=== PATIENT | female | born 1975 ===

== ENCOUNTER 2016-10-12 21:40 | Observation (INO) | payer BC ==
[2016-10-12 21:55] VITALS: RESP 18; O2SAT 100
[2016-10-12] MEDS ORDERED: Iohexol 240 (50 ml) PO STA (22:52)
[2016-10-12] MEDS ORDERED: Sodium Chloride 0.9% 1,000 ML IV STA (22:52)
[2016-10-12] MEDS ORDERED: Iohexol 240 (50 ml) ONE (23:10)
[2016-10-12 23:16] LABS: BASO # 0.1 K/uL (0.0-0.2); BASO % 0.5 % (0.0-2.0); EOS # 0.3 K/uL (0.0-0.7); EOS % 2.1 % (0.0-4.0); HEMATOCRIT 40.9 % (34.0-47.0); LYMPH # 3.5 K/uL (1.0-4.3); LYMPH % 21.8 % (20.0-40.0); MEAN CELL VOLUME 85.5 fl (81.0-99.0); MEAN CORPUSCULAR HEMOGLOBIN 28.7 pg (27.0-31.0); MEAN CORPUSCULAR HGB CONC 33.6 g/dL (33.0-37.0); MEAN PLATELET VOLUME 8.6 fl (7.2-11.7); MONO # 0.8 K/uL (0.0-0.8); MONO % 5.1 % (0.0-10.0); NEUT # 11.3 K/uL (1.8-7.0); NEUT % 70.5 % (50.0-75.0); RED CELL DISTRIBUTION WIDTH 14.2 % (11.5-14.5)
[2016-10-12 23:25] LABS: ALB/GLOB RATIO 1.2 (1.0-2.1); ALCOHOL SERUM < 10 mg/dl (0-10); ALKALINE PHOSPHATASE 137 U/L (38-126); ALT/SGPT 66 U/L (9-52); AST/SGOT 55 U/L (14-36); BILIRUBIN,TOTAL 0.5 mg/dl (0.2-1.3); BLOOD UREA NITROGEN 10 mg/dl (7-17); CALCIUM 9.7 mg/dL (8.4-10.2); CARBON DIOXIDE 25 mmol/L (22-30); CHLORIDE 103 mmol/L (98-107); GFR AFRICAN-AMERICAN > 60; GLUCOSE,RANDOM 111 mg/dL (65-105); LIPASE 59 U/L (23-300); MAGNESIUM 1.9 MG/DL (1.6-2.3); PHOSPHOROUS 3.6 mg/dl (2.5-4.5); SODIUM 140 mmol/l (132-148); TOTAL PROTEIN 8.3 G/DL (6.3-8.2)
[2016-10-12 23:27] LABS: POTASSIUM 3.5 MMOL/L (3.6-5.0)
--- NOTE | 2016-10-12 23:51 | ED PDOC ---
HPI: Abdomen Time Seen by Provider: 10/12/16 22:14 Chief Complaint (Nursing): Abdominal Pain Chief Complaint (Provider): Abdominal Pain History Per: Patient History/Exam Limitations: no limitations Onset/Duration Of Symptoms: Hrs (x4), Sudden Onset Outside of [place] travel?: No Current Symptoms Are (Timing): Still Present Severity: Severe Location Of Pain/Discomfort: Periumbilical Quality Of Discomfort: Cramping Associated Symptoms: Nausea. denies: Fever, Chills, Diarrhea, Constipation Additional Complaint(s): 40 year old female presents to ED with complaints of abdominal pain x4 hours and no past medical history. Patient notes sudden onset of pain in the periumbilical region, radiating to the rest of the abdomen. Describes the pain as cramping and severe. (+) nausea and vomiting (made herself vomit to see if symptoms would improve). (-) fever, chills, diarrhea, constipation, black/ bloody stool, or urinary symptoms. Patient states that she last ate at lunch time. Of note, patient takes Omeprazole for stomach acid. PCP: Karrie Fournier Past Medical History Reviewed: Historical Data, Nursing Documentation, Vital Signs Vital Signs: Last Vital Signs Temp 97.9 F 10/13/16 02:35 Pulse 81 10/13/16 02:35 Resp 18 10/13/16 02:35 BP 149/78 10/13/16 02:35 Pulse Ox 100 10/13/16 02:38 - Medical History PMH: No Chronic Diseases - Surgical History Surgical History: (x2) Denies: No Surg Hx Other surgeries: Hysterectomy - Family History Family History: States: Other Denies: Unknown Family Hx Other Family History: Father had bleeding ulcers - Social History Current smoker - smoking cessation education provided: Yes Ex-Smoker (has not smoked in the last 12 months): No Alcohol: < 2 Drinks/Day Drugs: Denies - Home Medications Home Medications: Ambulatory Orders Medication Instructions Recorded Azithromycin [Zithromax Z-Gerardo] 250 mg PO DAILY #1 packet 03/26/15 Esomeprazole Magnesium [Nexium] 40 mg PO DAILY 03/26/15 Ibuprofen 600 mg PO Q6 PRN #15 tablet 03/26/15 Dicyclomine [Bentyl] 20 mg PO Q12 PRN #20 tab 10/13/16 - Allergies Allergies/Adverse Reactions: Allergies Allergy/AdvReac Type Severity Reaction Status Date / Time No Known Allergies Allergy Verified 03/26/15 20:05 Review of Systems ROS Statement: Except As Marked, All Systems Reviewed And Found Negative Constitutional: Negative for: Fever, Chills Gastrointestinal: Positive for: Nausea, Vomiting, Abdominal Pain, Constipation. Negative for: Diarrhea, Melena, Hematochezia Genitourinary Female: Negative for: Dysuria, Frequency, Incontinence, Hematuria Physical Exam - Reviewed Nursing Documentation Reviewed: Yes Vital Signs Reviewed: Yes - Physical Exam Appears: Positive for: Non-toxic, In Acute Distress (Moderate painful distress) . Negative for: No Acute Distress Head Exam: Positive for: ATRAUMATIC, NORMOCEPHALIC Skin: Positive for: Normal Color, Warm, Dry Eye Exam: Positive for: Normal appearance, EOMI, PERRL ENT: Positive for: Normal ENT Inspection Neck: Positive for: Normal, Painless ROM, Supple Cardiovascular/Chest: Positive for: Regular Rate, Rhythm. Negative for: Murmur Respiratory: Positive for: Normal Breath Sounds. Negative for: Respiratory Distress Gastrointestinal/Abdominal: Positive for: Soft, Tenderness (Diffuse TTP, especially in periumbilical area). Negative for: Mass, Guarding, Rebound Back: Positive for: Normal Inspection Extremity: Positive for: Normal ROM. Negative for: Deformity Neurologic/Psych: Positive for: Alert, Oriented. Negative for: Motor/Sensory Deficits - Laboratory Results Result Diagrams: 10/12/16 23:11 10/12/16 23:11 - ECG O2 Sat by Pulse Oximetry: 100 (RA) Pulse Ox Interpretation: Normal Medical Decision Making Medical Decision Makin Initial impression: abdominal pain DDx: colitis, enteritis, diverticulitis, appendicitis, pancreatitis Initial plan: * CTA A/P * EtOH serum * Labs * Lipase * Magnesium * Phosphorus * PTT/PT * NS IV * Iohexol 50mL PO * ED OBS ADMISSION All further documentation will take place in ED OBS note. Scribe Attestation: Documented by Hailey Gao acting as a scribe for Jb Bonilla MD. Scribe Attestation: All medical record entries made by the Scribe were at my direction and personally dictated by me. I have reviewed the chart and agree that the record accurately reflects my personal performance of the history, physical exam, medical decision making, and the department course for this patient. I have also personally directed, reviewed, and agree with the discharge instructions and disposition. ED OBSERVATION Date of observation admission: 10/12/16 Time of observation admission: 22:52 - Observation admission statement Patient is being placed in observation because:: For time intensive work up and series ABD exam - Goals of Observation Goals of observation are:: Radiology reports and diagnosis - Progress Note Progress Note: 10/13/16 00:00 Patient signed out to Dr. Bonilla pending CT. Disposition - Clinical Impression Clinical Impression: Abdominal pain - Disposition Disposition Time: 22:52 Condition: STABLE Patient Signed Over To: Jb Bonilla (at 00:00 [id number]) Handoff Comments: Pending CT - Pt Status Changed To: Hospital Disposition Of: Observation
--- NOTE | 2016-10-13 00:32 | ED PDOC ---
- Laboratory Results Result Diagrams: 10/12/16 23:11 10/12/16 23:11 - ECG O2 Sat by Pulse Oximetry: 100 (RA) Medical Decision Making Medical Decision Makin Patient signed out to me from Dr. Leon pending CT. All further documentation will take place in ED OBS section of chart. Scribe Attestation: Documented by Hailey Gao acting as a scribe for Jb Bonilla MD. Scribe Attestation: All medical record entries made by the Scribe were at my direction and personally dictated by me. I have reviewed the chart and agree that the record accurately reflects my personal performance of the history, physical exam, medical decision making, and the department course for this patient. I have also personally directed, reviewed, and agree with the discharge instructions and disposition. Disposition Counseled Patient/Family Regarding: Studies Performed, Diagnosis - Clinical Impression Clinical Impression: Abdominal pain - POA Present On Arrival: None - Disposition Disposition: Hospitalized as Observation Patient Disposition Time: 22:52 Condition: STABLE ED OBSERVATION Discharge: Yes Date of observation admission: 10/12/16 Time of observation admission: 22:52 - Observation admission statement Patient is being placed in observation because:: Pending CT - Goals of Observation Goals of observation are:: CT results - Progress Note Progress Note: 10/13/16 00:32 Patient resting in room. Vitals stable. 10/13/16 01:58 CT FINDINGS Lower thorax: Minimal bibasilar atelectasis or scar. ABDOMEN: Liver: Unremarkable. No mass. Gallbladder and bile ducts: Unremarkable. No calcified stones. No ductal dilation. Pancreas: Unremarkable. No mass. No ductal dilation. Spleen: Unremarkable. No splenomegaly. Adrenals: Unremarkable. No mass. Kidneys and ureters: Unremarkable. No solid mass. No hydronephrosis. Stomach and bowel: There is suggestion of some wall thickening of anterior pelvic small bowel segments centered to the right which may reflect nonspecific ileitis which does not appear to involve the distal most ileum. No obstruction. Appendix: A normal appendix is seen. PELVIS: Bladder: Unremarkable. No mass. Reproductive: Status post hysterectomy. ABDOMEN and PELVIS: Intraperitoneal space: Unremarkable. No free air. No significant fluid collection. Bones/joints: No acute fracture. No dislocation. Soft tissues: Unremarkable. Vasculature: Unremarkable. No abdominal aortic aneurysm. Lymph nodes: Unremarkable. No enlarged lymph nodes. IMPRESSION: 1. Status post hysterectomy. 2. Question of slight small bowel wall thickening of some segments in the anterior pelvis centered to the right which may reflect enteritis. 3. Otherwise negative CT abdomen/pelvis. Upon re-evaluation, patient notes significant improvement in symptoms. Patient is medically stable for discharge home. Dx: abdominal pain
[2016-10-13] MEDS ORDERED: Iohexol 300 100 ML IJ ONE (01:17)
[2016-10-13] MEDS ORDERED: Sodium Chloride 0.9% 50 ML IV ONE (01:17)
[2016-10-13 02:36] VITALS: BP 149/78; PULSE 81; TEMP 97.9
--- NOTE | 2016-10-13 11:48 | CT ---
PROCEDURE: CT abdomen pelvis dated 10/13/2016 HISTORY: ABD PAIN COMPARISON: No prior TECHNIQUE: Contiguous axial images of the abdomen and pelvis. Oral contrast was administered. No IV contrast given. Coronal and Sagittal reformats generated. Radiation dose: Total exam DLP = 806.4 mGy-cm. This CT exam was performed using one or more of the following dose reduction techniques: Automated exposure control, adjustment of the mA and/or kV according to patient size, and/or use of iterative reconstruction technique. FINDINGS: LOWER THORAX: Mild bibasilar atelectasis. No effusion or basilar pneumothorax. There is a small hiatal hernia with wall thickening of the distal esophagus that could be due to protrusion gastric mucosa. Possibility of esophagitis or other invasive wall lesion not excluded. Clinical correlation recommended. Heart size within range of normal. No significant pericardial effusion. LIVER: Liver is enlarged measuring nearly 21 cm in CC dimension. Mild diffuse fatty hepatic infiltration. No obvious hepatic mass or collection. Portal and splenic veins are opacified. The GALLBLADDER AND BILE DUCTS: The the gallbladder is physiologically distended. No evidence of intraluminal gallbladder calculi. PANCREAS: Unremarkable. No mass. No ductal dilatation. SPLEEN: Spleen exhibits normal size and attenuation pattern. ADRENALS: No adrenal lesions seen. KIDNEYS AND URETERS: Kidneys demonstrate symmetric nephrograms. No evidence of nephrolithiasis or hydronephrosis. BLADDER: Urinary bladder is incompletely distended which may account for slight thick-walled appearance. Possibility of a cystitis however must be at considered. Clinical correlation with urinalysis recommended. REPRODUCTIVE: Changes of hysterectomy. . Suspect on small septated ovarian cyst. Pelvic ultrasound recommended. APPENDIX: The appendix appears grossly unremarkable best seen on coronal sequence 601 image number [id number]. No periappendiceal inflammatory changes. BOWEL: Evaluation of the bowel is somewhat limited due to incomplete opacification. The stomach is nondistended which presumably accounts for thick-walled appearance. Possibility of gastritis not excluded. There is mild wall thickening of segments of distal small bowel in the right mid/ lower abdomen and pelvis consistent with a nonspecific enteritis/ileitis. Clinical correlation recommended to rule out inflammatory or infectious etiology. There also appears to be some mild wall thickening of the cecum and proximal ascending colon. Mid. Questionable mild wall thickening of short segment of the sigmoid colon versus underdistention and peristalsis. . No evidence of acute small bowel or large bowel obstruction. PERITONEUM: Unremarkable. No fluid collection. No free air. Small fat containing umbilical hernia. LYMPH NODES: Few small bilateral pelvic lymph nodes. The VASCULATURE: Unremarkable. No aortic aneurysm. BONES: Minor multilevel degenerative spondylosis of the lower thoracic spine. Sclerotic focus within the T8 segment likely representing a osteoma or bone island questionable small hemangioma within L3 segment. OTHER FINDINGS: None. IMPRESSION: Findings consistent with enterocolitis as described. Rule out infectious versus inflammatory etiologies. See above discussion for additional details Hepatomegaly. Mild fatty hepatic infiltration Status post hysterectomy. Probable small septated left ovarian cyst. . Recommend followup pelvic ultrasound. Small hiatal hernia ; rule out esophagitis. Tobi.
== END 2016-10-13 02:31 | disposition home or self-care (01) ==
LOC: H.ER 21:40 → H.EROBSV 22:52
PROVIDERS: ADMIT Emergency Medicine; ATTEND Emergency Medicine
DX: R10.33 Periumbilical pain (principal); F17.200 Nicotine dependence, unspecified, uncomplicated
CPT/HCPCS: 74177; 80053; 83690; 83735; 84100; 85025; 85610; 85730; 96360; 99282; G0378; G0480; J7040; Q9966; Q9967